=== PATIENT | female | born 1930 | race Caucasian/White ===

== ENCOUNTER 2016-06-02 11:41 | Observation (INO) | payer OTHER ==
[~2016-06-02] VITALS: Ht 154.9 cm; Wt 75.5 kg
[~2016-06-02 11:41] MED LIST: ASPIR 8181 M1 PO; DULERA 200 MCG/13 GM IH; LISINOPRIL-HCT1 EAC3 PO; METOPROLOL SUCC25 MG PO; SIMVASTATIN40 MG PO; ZANTAC150 MG PO
[2016-06-02 13:15] LABS: HEMATOCRIT 44.9 % (36.0-46.0); MCH 30.7 PG (29.0-34.0); MCHC 33.2 G/DL (30.0-36.0); MCV 92.4 FL (83-99); MEAN PLAT.VOLUME 11.3 uM^3 (9.5-12.4); PLATELET COUNT 167 K/uL (156-360); RBC DIS.WIDTH-CV 14.1 % (11.8-14.6); RBC DIS.WIDTH-SD 45.9 % (39-53); RED BLOOD COUNT 4.86 M/uL (3.80-5.20); WHITE BLOOD COUNT 11.3 K/uL (4.1-10.2)
[2016-06-02 13:23] LABS: CHLORIDE 103 mEq/L (99-109); SODIUM 140 mEq/L (136-147)
[2016-06-02 13:25] LABS: GLUCOSE 134 mg/dL (70-99)
[2016-06-02 13:26] LABS: ANION GAP 13 MEQ/L (2-14)
[2016-06-02 13:29] LABS: GFR ESTIMATE (CALCULATED) 38 mL/min/
[2016-06-02 13:30] LABS: UREA NITROGEN (BUN) 25 mg/dL (9-23)
[2016-06-02 13:32] LABS: TROP-I INTERPRETATION NEGATIVE; TROPONIN-I 0.14 ng/mL (0.0-0.30)
[2016-06-02] MEDS ORDERED: B COMPLETE1 EACH PO (14:28)
[2016-06-02] MEDS ORDERED: DUONEB 2.5-0.5 M3 ML AEROSOL (14:32)
[2016-06-02 16:47] LABS: HDL CHOLESTEROL 32 MG/DL (Desirable>=50); LDL CHOLESTEROL 67 mg/dL (Desirable<100); NON-HDL CHOLESTEROL 116 mg/dL (Desirable<160); TOTAL CHOLESTEROL 148 mg/dL (Desirable<200); TRIGLYCERIDES 244 MG/DL (Normal: <150)
[2016-06-02 17:15] VITALS: BP 136/68
[2016-06-02 21:51] VITALS: BP 159/75
[2016-06-03 00:49] VITALS: BP 141/69
[2016-06-03 01:02] LABS: TROP-I INTERPRETATION POSITIVE
[2016-06-03 01:03] LABS: TROPONIN-I 0.66 ng/mL (0.0-0.30)
[2016-06-03 04:49] VITALS: BP 148/70
[2016-06-03 06:08] LABS: HEMATOCRIT 38.2 % (36.0-46.0); MCH 31.2 PG (29.0-34.0); MCHC 32.5 G/DL (30.0-36.0); MEAN PLAT.VOLUME 10.7 uM^3 (9.5-12.4); PLATELET COUNT 183 K/uL (156-360); RBC DIS.WIDTH-CV 13.9 % (11.8-14.6); RBC DIS.WIDTH-SD 48.4 % (39-53); RED BLOOD COUNT 3.98 M/uL (3.80-5.20); WHITE BLOOD COUNT 7.1 K/uL (4.1-10.2)
[2016-06-03 06:30] LABS: ANION GAP 7 MEQ/L (2-14); CHLORIDE 105 MEQ/L (99-109); GFR ESTIMATE (CALCULATED) 38 mL/min/; SAMPLE HEMOLYSIS CHECK 0; SAMPLE ICTERIC CHECK 0; SAMPLE LIPEMIA CHECK 0; SODIUM 143 MEQ/L (136-147); UREA NITROGEN (BUN) 22 mg/dL (9-23)
[2016-06-03 06:31] LABS: GLUCOSE 99 mg/dL (70-99)
[2016-06-03 06:50] LABS: TROP-I INTERPRETATION INDETERMINATE; TROPONIN-I 0.55 ng/mL (0.0-0.30)
[2016-06-03 08:00] VITALS: BP 130/66
[2016-06-03 12:15] VITALS: BP 127/71
[2016-06-03 12:30] LABS: ADD MIUA? YES; BILIRUBIN NEGATIVE; BLOOD MODERATE; COLOR YELLOW ((YELLOW)); GLUCOSE (STRIP) NEGATIVE; KETONES NEGATIVE; LEUKOCYTES LARGE; NITRITE NEGATIVE; PROTEIN (STRIP) TRACE; SPECIFIC GRAVITY 1.015 (1.000-1.030); UROBILINOGEN 0.2 MG/DL (0.2-1.0)
[2016-06-03 13:33] LABS: BACTERIA 3+; CASTS NONE SEEN /LPF; CRYSTALS NONE SEEN; EPITHELIAL CELLS RARE; MUCUS NONE SEEN; UCUL ADDED? YES; WHITE BLOOD CELLS TNTC /HPF (0-5)
[2016-06-03] MEDS ORDERED: DILTIAZEM 24HR180 MG PO (14:15)
[2016-06-03] MEDS ORDERED: CEFTIN250 MG PO (14:15)
[2016-06-03] MEDS ORDERED: LISINOPRIL20 MG PO (14:16)
== END 2016-06-03 15:05 | disposition home or self-care (01) ==
LOC: EME 11:41 → EDOF 15:55 → 5WEST 15:55 → EDOF 15:55 → 5WEST 17:17
PROVIDERS: Emergency Medicine; Hospitalist; Physician Assistant
PROC: 5A2204Z Restoration of Cardiac Rhythm, Single (ICD-10-PCS; principal; 2016-06-02)
DX: I47.1 Supraventricular tachycardia (principal); R94.8 Abnormal results of function studies of other organs and systems; N17.9 Acute kidney failure, unspecified; I10 Essential (primary) hypertension; J44.9 Chronic obstructive pulmonary disease, unspecified; J96.11 Chronic respiratory failure with hypoxia; R73.9 Hyperglycemia, unspecified; E78.5 Hyperlipidemia, unspecified; I25.10 Atherosclerotic heart disease of native coronary artery without angina pectoris; K21.9 Gastro-esophageal reflux disease without esophagitis; R91.8 Other nonspecific abnormal finding of lung field; Z99.81 Dependence on supplemental oxygen; Z79.82 Long term (current) use of aspirin; R94.31 Abnormal electrocardiogram [ECG] [EKG]; R00.2 Palpitations; Z88.2 Allergy status to sulfonamides
CPT/HCPCS: 71020; 80048; 80061; 81003; 84484; 85027; 87086; 93005; 94799; 99202; 99281; 99285; G0378; J1650; J2405; J7120